=== PATIENT | female | born 1980 | race Caucasian/White ===

== ENCOUNTER → 2023-04-30 | Emergency (ER) | payer OTHER ==
[~2023-04-30] MED LIST: ASPIRIN 81 MG CHEWABLE TABLET ONE; AZITHROMYCIN 250 MG TAB ONE; FAMOTIDINE 20 MG/2 ML VIAL IV ONE
[2023-04-30 18:36] LABS: PT Prothrombin Time 10.9 SECONDS (9.5-12.5); Protime INR 0.99
--- NOTE | 2023-04-30 18:49 | RAD REPORT ---
EXAM DESCRIPTION: Kayode Single View04/30/2023 6:33 pm CLINICAL HISTORY: Chest pain COMPARISON: none FINDINGS: The lungs appear clear of acute infiltrate. The heart is normal size IMPRESSION: No acute abnormalities displayed
[2023-04-30 18:53] LABS: Absolute Eosinophils 0.2 K/uL (0-0.5); Absolute Lymphocytes (CBC) 2.5 K/uL (0.7-4.9); Absolute Monocytes 0.2 K/uL (0.1-1.3); Absolute Neutrophil 2.7 K/uL (1.8-8.0); Basophils % 0.8 % (0-1.3); Eosinophils % 3.5 % (0-4.4); Hematocrit 36.4 % (36.0-45.0); Hemoglobin 12.4 g/dL (12.0-15.0); Lymphocytes % 44.5 % (15.3-44.8); MCH 29.9 pg (27.0-35.0); MCHC 34.1 g/dL (32.0-36.0); MCV 87.6 fL (80-100); Monocytes % 3.1 % (3.3-12.3); Neutrophils % 48.1 % (41.7-73.7); Nucleated RBC Absolute Count 0.1 (0-0); RBC Red Blood Cell Count 4.16 M/uL (3.86-4.86); Red Cell Distribution Width 13.5 % (12.1-15.2)
[2023-04-30 19:15] LABS: MPV 7.7 fL (7.6-11.3); Platelets 142 thou/uL (152-406)
[2023-04-30 21:19] LABS: Specific Gravity 1.015 (1.005-1.030); Sqamous Epithelial <5 /HPF (None Seen); Urine Bacteria <20 /HPF (<20); Urine Bilirubin NEGATIVE (Negative); Urine Blood Negative (Negative); Urine Clarity Turbid (Clear); Urine Color Light-Yellow (Yellow); Urine Culture Reflex Order NOT NEEDED; Urine Glucose NEGATIVE (Negative); Urine Ketones NEGATIVE (Negative); Urine Micro Reflex YN NO BILL MICROSCOPIC; Urine Mucus 1+ /HPF (None Seen); Urine Nitrite NEGATIVE (Negative); Urine Protein NEGATIVE (Negative); Urine RBC <5 /HPF (None Seen); Urine Urobilinogen Normal (Normal); Urine WBC <5 /HPF (<5); Urine Yeast (Budding) Trace /HPF (None Seen); Urine pH 6.5 (5.0-7.0)
[2023-04-30 21:23] LABS: ALT/SGPT 16 U/L (13-56); AST/SGOT 12 U/L (15-37); Albumin 3.5 g/dL (3.4-5.0); Albumin/Globulin Ratio 1.1 (1.1-1.8); Alkaline Phosphatase 50 U/L (45-117); Anion Gap 8.8 mEq/L (5.0-15.0); BUN Blood Urea Nitrogen 6 mg/dL (7-18); Bicarbonate 26 mEq/L (21-32); Bilirubin Total 0.4 mg/dL (0.2-1.0); Globulin 3.3 g/dL (2.3-3.5); Glomerular Filtration Rate 112 ml/min (=/>90); Glucose Level 84 mg/dL (74-106); Magnesium 2.2 mg/dL (1.6-2.4); NT PRO-BNP 141 pg/mL (<125); Potassium 3.8 mEq/L (3.5-5.1); Protein, Total 6.8 g/dL (6.4-8.2); Sodium Level 141 mEq/L (136-145)
[2023-04-30 21:24] LABS: Barbiturates NEGATIVE (NEGATIVE); Benzodiazepines NEGATIVE (NEGATIVE); Cocaine NEGATIVE (NEGATIVE); METHAMPHETAM NEGATIVE (NEGATIVE); Methadone NEGATIVE (NEGATIVE); Opiates NEGATIVE (NEGATIVE); Phencyclidine NEGATIVE (NEGATIVE); THC Cannibis POSITIVE (NEGATIVE)
[2023-04-30 21:34] LABS: Bilirubin Direct < 0.1 mg/dL (0-0.2); Bilirubin Indirect, Calculated ND mg/dL (0.2-0.8); Troponin High Sensitivity < 3.0 pg/mL (<58.9)
--- NOTE | 2023-05-01 00:58 | ER ---
Nurse's Notes [facility] Name: Chelsey Piper Age: 43 yrs Sex: Female : 1980 Arrival Date: 04/30/2023 Time: 17:52 Bed 15 Private MD: Diagnosis: Chest pain, unspecified Presentation: 04/29 18:00 Chief complaint: Patient states: "I started having chest pain this morning. I've had it mb9 for years but today it didn't go away. I felt like I was going to pass out." Pt denies SOB/N/V. Coronavirus screen: At this time, the client does not indicate any symptoms associated with coronavirus-19. Ebola Screen: No symptoms or risks identified at this time. Initial Sepsis Screen: Does the patient meet any 2 criteria? No. Patient's initial sepsis screen is negative. Does the patient have a suspected source of infection? No. Patient's initial sepsis screen is negative. Risk Assessment: Do you want to hurt yourself or someone else? Patient reports no desire to harm self or others. Onset of symptoms was April 30, 2023. 18:00 Method Of Arrival: Ambulatory mb9 18:00 Acuity: SERGE 3 mb9 Triage Assessment: 18:01 Pain: Complains of pain in chest Pain does not radiate. Pain currently is 10 out of 10 mb9 on a pain scale. Quality of pain is described as sharp, stabbing. Cardiovascular: Reports chest pain, Patient's skin is warm and dry. Historical: - Allergies: 21:34 Aspirin; me1 21:34 Demerol; me1 - Home Meds: 18:01 None [Active]; mb9 - PMHx: 18:01 None; mb9 - PSHx: 18:01 None; mb9 - Immunization history:: Adult Immunizations up to date. - Social history:: Smoking status: Patient reports the use of cigarette tobacco products, smokes one pack cigarettes per day. Screenin:11 [facility] ED Fall Risk Assessment (Adult) History of falling in the last 3 months, me1 including since admission No falls in past 3 months (0 pts) Confusion or Disorientation No (0 pts) Intoxicated or Sedated No (0 pts) Impaired Gait No (0 pts) Mobility Assist Device Used No (0 pt) Altered Elimination No (0 pt) Score/Fall Risk Level 0 - 2 = Low Risk Maintained a safe environment, Provided non-skid footwear, Hourly rounding (assess needs \\T\\ fall precautionary measures) done. Abuse screen: Denies threats or abuse. Nutritional screening: No deficits noted. Tuberculosis screening: No symptoms or risk factors identified. Assessment: 22:11 General: Appears comfortable, well groomed, well developed, well nourished, Behavior is me1 calm, cooperative, appropriate for age, Reports "I started having chest pain this morning. I've had it for years but today it didn't go away. I felt like I was going to pass out." Pt denies SOB/N/V. Pain: Complains of pain in chest Pain does not radiate. Pain at worst was 10 out of 10 on a pain scale. Quality of pain is described as sharp, Pain began years ago. Is continuous. Pain: Pain currently is 7 out of 10 on a pain scale. Quality of pain is described as sharp, Pain began years ago. Is continuous. Neuro: Level of Consciousness is awake, alert, obeys commands, Oriented to person, place, time, situation, Appropriate for age. Cardiovascular: Patient's skin is warm and dry. Cardiovascular: Respiratory: Airway is patent Trachea midline Respiratory effort is even, unlabored, Respiratory pattern is regular, symmetrical. Derm: Skin is pink, warm \\T\\ dry. 23:00 Reassessment: Patient and/or family updated on plan of care and expected duration. Pain me1 level reassessed. Patient is alert, oriented x 3, equal unlabored respirations, skin warm/dry/pink. 04/30 00:00 Reassessment: Patient appears in no apparent distress at this time. No changes from km8 previously documented assessment. Patient and/or family updated on plan of care and expected duration. Pain level reassessed. Patient is alert, oriented x 3, equal unlabored respirations, skin warm/dry/pink. General: Appears in no apparent distress. comfortable. Neuro: Level of Consciousness is awake, alert, obeys commands, Oriented to person, place, time, situation. Cardiovascular: Patient's skin is warm and dry. Respiratory: Airway is patent Respiratory effort is even, unlabored, Respiratory pattern is regular, symmetrical. 01:00 Reassessment: Patient appears in no apparent distress at this time. No changes from km8 previously documented assessment. Patient and/or family updated on plan of care and expected duration. Pain level reassessed. Patient is alert, oriented x 3, equal unlabored respirations, skin warm/dry/pink. Vital Signs: 04/29 18:00 BP 114 / 93; Pulse 76; Resp 18; Temp 98; Pulse Ox 100% on R/A; Weight 54.43 kg; Height mb9 5 ft. 2 in. ; Pain 10/10; 21:26 BP 98 / 68; Pulse 54; Resp 16; Pulse Ox 100% on R/A; me1 22:00 BP 102 / 54; Pulse 53; Resp 16; Pulse Ox 100% on R/A; me1 04/30 01:10 BP 105 / 60; Pulse 55; Resp 18; Temp 98.2(TE); Pulse Ox 98% on R/A; km8 04/29 18:00 Body Mass Index 21.95 (54.43 kg, 157.48 cm) mb9 04/29 18:00 Pain Scale: Adult mb9 ED Course: 04/29 17:55 Patient arrived in ED. mg5 17:59 Royer Brink PA is PHCP. cp 17:59 Royer Serrato MD is Attending Physician. cp 18:00 EKG done, by ED staff, reviewed by Royer JESUS. mb9 18:01 Triage completed. mb9 18:01 Arm band placed on. mb9 18:18 Basic Metabolic Panel Sent. mb9 18:18 CBC with Diff Sent. mb9 18:18 D-Dimer Sent. mb9 18:18 LFT's Sent. mb9 18:18 Magnesium Sent. mb9 18:18 NT PRO-BNP Sent. mb9 18:18 PT-INR Sent. mb9 18:18 Troponin HS Sent. mb9 18:18 Inserted saline lock: 20 gauge in left forearm, using aseptic technique. mb9 18:18 Initial lab(s) drawn, by me, sent to lab. mb9 18:35 XRAY Chest (1 view) In Process Unspecified. EDMS 21:16 Radha Ramon, RN is Primary Nurse. me1 22:11 Patient has correct armband on for positive identification. Provided Education on: POC. me1 Verbalized understanding. . Client placed on continuous cardiac and pulse oximetry monitoring. NIBP monitoring applied. shelter monitor on. Pulse ox on. NIBP on. 22:11 No provider procedures requiring assistance completed. Patient maintains SpO2 me1 saturation greater than 95% on room air. 22:31 CT Chest For PE Angio In Process Unspecified. EDMS 22:44 Troponin High Sensitivity Sent. me1 04/30 00:56 Mansoor Krishnamurthy MD is Referral Physician. cp 01:11 IV discontinued, intact, bleeding controlled, No redness/swelling at site. Pressure km8 dressing applied. Administered Medications: 04/29 21:36 Not Given (Patient Refused; allergic to aspirin. Added to allergies.): aspirinchewable me1 tablet 324 mg PO once; 81 mg tablets x 4 21:36 Drug: Famotidine IVP 20 mg IVP once; dilute with 10 mL 0.9% NaCl; give over 2 minutes me1 Route: IVP; Site: left forearm; 22:17 Follow up: Response: No adverse reaction me1 04/30 01:09 Drug: AZITHromycin PO 500 mg PO once Route: PO; km8 01:09 Follow up: Response: Medication administered at discharge. km8 Medication: 04/29 22:11 VIS not applicable for this client. me1 Outcome: 04/30 00:57 Discharge ordered by MD. cp 01:11 Discharged to home ambulatory, with significant other, km8 01:11 Condition: good 01:11 Discharge instructions given to patient, significant other, Instructed on discharge instructions, follow up and referral plans. medication usage, Demonstrated understanding of instructions, follow-up care, medications, Prescriptions given X 2, 01:12 Patient left the ED. km8 Signatures: Dispatcher [employer] EDOH Royer Brink PA PA cp Breneman, Mary Beth RN RN mb9 Rdaha Ramon, RN RN me1 Gena Guerrero mg5 Naheed Pedroza RN RN km8 Corrections: (The following items were deleted from the chart) 04/29 21:35 18:01 Allergies: No Known Allergies; mb9 il1 22:11 18:00 Chief complaint: Patient states: "I started having chest pain this morning. I've me1 had it for years but today it didn't go away. I felt like I was going to pass out." Pt denies SOB/N/V margie
--- NOTE | 2023-05-01 00:58 | EDPHYS ---
Physician Documentation [facility] Name: Chelsey Piper Age: 43 yrs Sex: Female : 1980 Arrival Date: 04/30/2023 Time: 17:52 Bed 15 Private MD: ED Physician Royer Serrato HPI: 04/29 18:05 This 43 yrs old Female presents to ER via Ambulatory with complaints of Chest Pain. cp 18:05 The patient or guardian reports chest pain that is located primarily in the substernal cp area. Onset: this morning. The pain does not radiate. The chest pain is described as sharp. Duration: The patient or guardian reports a single episode, that is still ongoing, and unchanged. 18:05 Associated signs and symptoms: Pertinent positives: near-syncope, Pertinent negatives: cp abdominal pain, cough, diaphoresis, dizziness, headache, lower extremity pain, lower extremity swelling, palpitations, shortness of breath, vomiting. Historical: - Allergies: 21:34 Aspirin; me1 21:34 Demerol; me1 - Home Meds: 18:01 None [Active]; mb9 - PMHx: 18:01 None; mb9 - PSHx: 18:01 None; mb9 - Immunization history:: Adult Immunizations up to date. - Social history:: Smoking status: Patient reports the use of cigarette tobacco products, smokes one pack cigarettes per day. ROS: 18:10 Constitutional: Negative for body aches, chills, fever, poor PO intake, cp 18:10 Cardiovascular: Positive for chest pain, Negative for edema, palpitations, cp 18:10 Respiratory: Negative for cough, shortness of breath, wheezing, 18:10 Abdomen/GI: Negative for abdominal pain, vomiting, diarrhea, constipation, 18:10 Eyes: Negative for injury, pain, redness, and discharge, cp 18:10 ENT: Negative for drainage from ear(s), ear pain, sore throat, difficulty swallowing, difficulty handling secretions, 18:10 Back: Negative for pain at rest, pain with movement, 18:10 Neuro: Negative for altered mental status, dizziness, headache, numbness, syncope, weakness, 18:10 All other systems are negative, Exam: 18:02 ECG was reviewed by the Attending Physician. cp 18:15 Constitutional: The patient appears in no acute distress, alert, awake, cp non-diaphoretic, non-toxic, well developed, well nourished, 18:15 Head/Face: Normocephalic, atraumatic. cp 18:15 Eyes: Periorbital structures: appear normal, Conjunctiva: normal, no exudate, no injection, Sclera: no appreciated abnormality, Lids and lashes: appear normal, bilaterally, 18:15 ENT: External ear(s): are unremarkable, Nose: is normal, Mouth: Lips: normal, Oral mucosa: pink and intact, moist, Posterior pharynx: Airway: no evidence of obstruction, patent, Voice: is normal, 18:15 Neck: ROM/movement: is normal, is supple, without pain, no range of motions limitations, no nuchal rigidity, 18:15 Chest/axilla: Inspection: normal, 18:15 Cardiovascular: Rate: normal, Rhythm: regular, Edema: is not appreciated, JVD: is not appreciated, 18:15 Respiratory: the patient does not display signs of respiratory distress, Respirations: normal, no use of accessory muscles, no retractions, labored breathing, is not present, Breath sounds: are clear throughout, no decreased breath sounds, no stridor, no wheezing, 18:15 Abdomen/GI: Exam negative for discomfort, distension, guarding, Inspection: abdomen appears normal, 18:15 Back: pain, is absent, ROM is normal, 18:15 Neuro: Orientation: to person, place \T\ time. Mentation: is normal, Cerebellar function: is grossly normal, Motor: moves all fours, strength is normal, Sensation: is normal, 22:36 ECG was reviewed by the Attending Physician. cp Vital Signs: 18:00 BP 114 / 93; Pulse 76; Resp 18; Temp 98; Pulse Ox 100% on R/A; Weight 54.43 kg; Height mb9 5 ft. 2 in. ; Pain 10/10; 21:26 BP 98 / 68; Pulse 54; Resp 16; Pulse Ox 100% on R/A; me1 22:00 BP 102 / 54; Pulse 53; Resp 16; Pulse Ox 100% on R/A; me1 04/30 01:10 BP 105 / 60; Pulse 55; Resp 18; Temp 98.2(TE); Pulse Ox 98% on R/A; km8 04/29 18:00 Body Mass Index 21.95 (54.43 kg, 157.48 cm) mb9 04/29 18:00 Pain Scale: Adult mb9 MDM: 04/29 18:00 Patient medically screened. cp 04/30 00:00 The patient was not given aspirin in the Emergency Department. Not indicated due to cp patient's past medical history. 00:55 Data reviewed: vital signs, nurses notes, lab test result(s), EKG, radiologic studies, cp CT scan, plain films. 00:55 Differential diagnosis: abnormal EKG, acute myocardial infarction, chest wall pain, cp cholecystitis, Cholelithiasis costochondritis, esophagitis, pericarditis, pleurisy, pneumonia, pneumothorax, pulmonary embolus, stable angina, thoracic aortic disection, unstable angina. Consideration of Admission/Observation Escalation of care including admission/observation considered. I considered the following discharge prescriptions or medication management in the emergency department Medications were administered in the Emergency Department. See MAR. 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 Response to treatment: the patient's symptoms have markedly improved after treatment, and as a result, I will discharge patient. Special discussion: Based on the patient's history, exam, and Dx evaluation, there is no indication for emergent intervention or inpatient Tx. It is understood by the patient/guardian that if the Sx's persist or worsen they need to return immediately for re-evaluation. 04/29 18:05 Order name: Basic Metabolic Panel; Complete Time: 22:05 cp 04/29 22:05 Interpretation: Normal except: CL 110; BUN 6. cp 04/29 18:05 Order name: CBC with Diff; Complete Time: 22:05 cp 04/29 18:05 Order name: D-Dimer; Complete Time: 22:05 cp 04/29 18:05 Order name: LFT's; Complete Time: 22:05 cp 04/29 18:05 Order name: Magnesium; Complete Time: 22:05 cp 04/29 18:05 Order name: NT PRO-BNP; Complete Time: 22:05 cp 04/29 18:05 Order name: PT-INR; Complete Time: 22:05 cp 04/29 18:05 Order name: Troponin HS; Complete Time: 22:05 cp 04/29 18:07 Order name: Urinalysis W/Microscopic; Complete Time: 22:05 cp 04/29 18:07 Order name: UDS; Complete Time: 22:05 cp 04/29 18:07 Order name: Test, Urine; Complete Time: 22:05 cp 04/29 22:06 Order name: Troponin High Sensitivity; Complete Time: 23:32 cp 04/29 18:05 Order name: XRAY Chest (1 view); Complete Time: 22:05 cp 04/29 22:06 Order name: CT Chest For PE Angio cp 04/29 18:05 Order name: EKG; Complete Time: 18:06 cp 04/29 18:05 Order name: Cardiac monitoring; Complete Time: 21:24 cp 04/29 18:05 Order name: EKG - Nurse/Tech; Complete Time: 18:07 cp 04/29 18:05 Order name: IV Saline Lock; Complete Time: 18:08 cp 04/29 18:05 Order name: Labs collected and sent; Complete Time: 18:08 cp 04/29 18:05 Order name: O2 Per Protocol; Complete Time: 21:24 cp 04/29 18:05 Order name: O2 Sat Monitoring; Complete Time: 21:24 cp 04/29 18:37 Order name: Labs - recollect needed: green top; Complete Time: 20:40 ds4 04/29 22:06 Order name: EKG - Nurse/Tech; Complete Time: 22:44 cp EC/21 18:02 Rate is 69 beats/min. Rhythm is regular. OR interval is normal. QRS interval is normal. cp QT interval is normal. T waves are Inverted in leads III, aVF. Interpreted by me. Reviewed by me. 22:36 Rate is 53 beats/min. Rhythm is regular. OR interval is shortened at 106 msec. QRS cp interval is normal. QT interval is normal. T waves are Inverted in lead aVR. Interpreted by me. Reviewed by me. Administered Medications: 21:36 Not Given (Patient Refused; allergic to aspirin. Added to allergies.): aspirinchewable me1 tablet 324 mg PO once; 81 mg tablets x 4 21:36 Drug: Famotidine IVP 20 mg IVP once; dilute with 10 mL 0.9% NaCl; give over 2 minutes me1 Route: IVP; Site: left forearm; 22:17 Follow up: Response: No adverse reaction me1 04/30 01:09 Drug: AZITHromycin PO 500 mg PO once Route: PO; km8 01:09 Follow up: Response: Medication administered at discharge. km8 Disposition Summary: 05/01/23 00:57 Discharge Ordered Notes: Location: Home cp Problem: new cp Symptoms: have improved cp Condition: Stable cp Diagnosis - Chest pain, unspecified cp Followup: cp - With: Mansoor Krishnamurthy MD - When: 5 - 6 days - Reason: Recheck today's complaints Discharge Instructions: - Discharge Summary Sheet cp - Nonspecific Chest Pain, Adult cp Forms: - Medication Reconciliation Form cp - Thank You Letter cp - Antibiotic Education cp - Prescription Opioid Use cp - Patient Portal Instructions cp - Leadership Thank You Letter cp Prescriptions: - Pepcid 20 mg Oral Tablet - take 1 tablet ORAL route every 12 hours for 10 days; 20 tablet; Refills: 0, cp Product Selection Permitted - Zithromax Z-Bennett 250 mg Oral Tablet - take 1 tablet ORAL route as directed for 5 days Day 1 - take two (2) tablets cp one time. Day 2, 3, 4 , 5 take one (1) tablet once daily.; 6 tablet; Refills: 0, Product Selection Permitted Signatures: Dispatcher [employer] Andrew Juan ds4 Royer Brink PA PA cp Breneman, Mary Beth RN RN mb9 Radha Ramon RN RN ky1 Naheed Pedroza RN RN km8 Corrections: (The following items were deleted from the chart) 04/29 21:35 18:01 Allergies: No Known Allergies; margie me1
[2023-05-01 01:25] VITALS: BP 105/60; TEMP 98.2; O2SAT 98
--- NOTE | 2023-05-01 10:11 | RAD REPORT ---
EXAM DESCRIPTION: CT - Chest For Pe Angio - 05/01/2023 6:31 am CLINICAL HISTORY: CHEST PAIN COMPARISON: None. TECHNIQUE: CT CHEST ANGIOGRAPHY WITH IV CONTRAST on 04/30/2023 10:06 PM CDT. MIPS reconstructions wer e generated. This exam was performed according to our departmental dose-optimization program, which includes autom ated exposure control, adjustment of the mA and/or kV according to patient size and/or use of iterati ve reconstruction technique. MIP images were generated. FINDINGS: Thoracic aorta is normal in course and caliber without aneurysm or dissection. Pulmonary a rteries are adequately opacified without acute or chronic filling defects. The heart is normal in size. There is no pericardial effusion. Intrathoracic lymph nodes are not enla rged. There is no pleural effusion, pleural thickening or pneumothorax. Central airways are patent. There i s mild upper lung centrilobular and paraseptal emphysema. There are minimal groundglass opacities in the upper lobes. There is a groundglass nodule in the right upper lobe measuring 3 mm. There are no acute abnormalities within the limited images of the upper abdomen. There are no acute osseous findings. No suspicious bony lesions. IMPRESSION: No aortic dissection or aneurysm. No pulmonary embolus. Difficult to exclude mild bilateral upper lobe. 3 mm right ground-glass pulmonary nodule within the upper lobe. Per Fleischner Society Guidelines, no routine follow-up imaging is recommended. These guidelines do not apply to immunocompromised patients and patients with cancer. Follow up in pa tients with significant comorbidities as clinically warranted. For lung cancer screening, adhere to L latanya-RADS guidelines. Reference: Radiology. 2017; 284(1):228-43. Electronically signed by: Gene Reynoso MD 05/01/2023 12:36 AM CDT Due to temporary technical issues with the PACS/Fluency reporting system, reports are being signed by the in house radiologist without review as a courtesy to ensure prompt reporting. The interpreting r adiologist is fully responsible for the content of the report.
--- NOTE | 2023-05-04 14:29 | EKG ---
Test Date: 2023-04-30 Test Time: 22:30:02 International Accountant: MEASUREMENT RESULTS: Intervals: Rate: 53 CA: 106 QRSD: 82 QT: 448 QTc: 420 Preston: P: 18 CA: 106 QRS: 82 T: 36 INTERPRETIVE STATEMENTS: Sinus bradycardia with short CA Otherwise normal ECG No previous ECG available for comparison Electronically Signed On 05-04-23 14:17:24 CDT by Mansoor Krishnamurthy
== END ==
LOC: ER 17:52
DX: R07.9 Chest pain, unspecified (principal); F17.210 Nicotine dependence, cigarettes, uncomplicated; Z88.5 Allergy status to narcotic agent; Z88.6 Allergy status to analgesic agent
CPT/HCPCS: 93005; 85025; 81001; 80048; 36415; 83735; 81025; 85610; 85379; 80076; 84484 ×2; 83880; 80307; 71275; 71045; 96374; 99285; Q9967

== ENCOUNTER 2024-05-13 23:15 | Emergency (ER) | payer OTHER ==
--- OUTSIDE RECORDS SUMMARY | 2024-05-13 23:18 | XMS REPORT | Continuity of Care Document ---
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 [employer] 94 9 [id number] 2024 00:00:00 Problems Condition Name Condition Details Condition Category Status Onset Date Resolution Date Last Treatment Date Treating Clinician Comments Source Swelling of extremity Swelling of extremity Disease Active 18 00:00: 00 Janette Zapien - Externa raeann Severe episode of recurrent major depressive disorder, without psychotic features (multi HCC) Severe episode of recurrent major depressive disorder, without psychotic features (multi HCC) Disease Active 2023-02 00:00: 00 Janette Zapien - Externa l Insomnia Insomnia Disease Active 2023-02 00:00: 00 Janette Weberold - Externa l Allergies, Adverse Reactions, Alerts Allergy Name Allergy Type Status Severity Reaction(s) Onset Date Inactive Date Treating Clinician Comments Source Demerol Propensi ty to adverse reaction s Active Other 2023-02 1- 00:00: 00 Oversedat ed, didn't wake up after 2 days. Janette Zapien - Externa l Social History Social Habit Start Date Stop Date Quantity Comments Source ASSERTION Not Janette Zapien - External Sexual orientation Olivia lock Curry - External Cigarettes smoked current (pack per day) - Reported 2024-04-26 00:00:00 2024-04-26 00:00:00 Janette Zapien - External Cigarette pack-years 2024-04-26 00:00:00 2024-04-26 00:00:00 Janette Zapien - External Alcoholic beverage intake 2024-04-26 00:00:00 2024-04-26 00:00:00 Lifetime non-drinker (finding) Janette Zapien - External History of tobacco use 1993-04-11 00:00:00 2023-12-23 00:00:00 Cigarette Smoker Janette Zapien - External History of Social function 2023-12-17 00:00:00 2023-12-17 00:00:00 Janette Zapien - External Sex 2023-11-12 16:31:07 2023-11-12 16:31:07 Female (finding) Janette Zapien - External Sex assigned at 1980 00:00:00 1980 00:00:00 Janette Zapien - External Smoking Status Start Date Stop Date Source Ex-smoker 2024-04-26 00:00:00 2024-04-26 00:00:00 Olivia lock Curry - External Smokes tobacco daily 2023-12-18 00:00:00 Janette Zapien - External Medications Ordered Medication Name Filled Medication Name Start Date Stop Date Current Medication? Ordering Clinician Indication Dosage Frequency Signature (SIG) Comments Components Source Albuterol HFA 108 (90 Base) MCG/ACT IN AERS 04-26 16:08: 47 Yes 2{puff} Q.25D Inhale 2 puffs into the lungs every 6 hours as needed for wheezing. Janette cary Bupropion HCL XL 150 MG OR TB24 04-26 00:00: 00 Yes [id number] 150mg QD Take 1 tablet (150 mg total) by mouth daily. Janette Moreno l Sertraline HCl 50 MG oral Tablet 04-18 00:00: 00 Yes [id number] 50mg QD Take 1 tablet (50 mg total) by mouth daily. Janette cary Vitamin D, Ergocalcife rol, 1.25 MG (17315 UT) oral Capsule 03-23 00:00: 00 04-26 00:00 :00 No [id number] Q1W Take 1 capsule (50,000 units total) by mouth once a week. Janette cary Albuterol HFA 108 (90 Base) MCG/ACT IN AERS 03-17 09:49: 34 Yes 2{puff} Q.25D Inhale 2 puffs into the lungs every 6 hours as needed for wheezing. Janette cary Cholecalcif radha (Vitamin D) 50 MCG (2000 UT) oral Capsule 03-17 00:00: 00 Yes [id number] 2000U QD Take 1 capsule (2,000 units total) by mouth daily. Janette cary Sertraline HCl 50 MG oral Tablet 03-17 00:00: 00 Yes [id number] 50mg QD Take 1 tablet (50 mg total) by mouth daily. Janette cary buPROPion HCl 75 MG oral Tablet 03-17 00:00: 00 04-26 00:00 :00 No [id number] 75mg QD Take 1 tablet (75 mg total) by mouth daily. Janette cary Mirtazapine 15 MG oral Tablet - 00:00: 00 Yes [id number] 15mg QD TAKE 1 TABLET BY MOUTH EVERY DAY AT NIGHT Janette cary Propranolol HCl 10 MG oral Tablet 2- 00:00: 00 Yes [id number] 10mg Q.[id number] 3D TAKE 1 TABLET BY MOUTH THREE TIMES A DAY NEEDED Janette cary Sertraline HCl 25 MG oral Tablet 1- 00:00: 00 03-17 00:00 :00 No [id number] 50mg QD TAKE 2 TABLETS BY MOUTH EVERY DAY Janette cary Sertraline HCl 25 MG oral Tablet 2023-02 2- 00:00: 00 Yes [id number] 50mg QD Take 2 tablets (50 mg total) by mouth daily. Janette cary Propranolol HCl 10 MG oral Tablet 2023-02 00:00: 00 Yes [id number] 10mg Q.[id number] 3D TAKE 1 TABLET BY MOUTH 3 TIMES DAILY NEEDED Janette cary Trazodone HCl 50 MG oral Tablet 2023-02 00:00: 00 Yes [id number] 50mg QD TAKE 1 TABLET BY MOUTH EVERY DAY AT NIGHT Janette cary Cholecalcif radha (Vitamin D) 50 MCG (2000 UT) oral Capsule 2023-02 00:00: 00 03-17 00:00 :00 No [id number] 2000U QD Take 1 capsule (2,000 units total) by mouth daily. Janette cary Albuterol HFA 108 (90 Base) MCG/ACT IN AERS 2023-02 12:52: 05 Yes 2{puff} Q.25D Inhale 2 puffs into the lungs every 6 hours as needed for wheezing. Janette cary Trazodone HCl 50 MG oral Tablet 2023-02 00:00: 00 Yes [id number] 50mg QD Take 1 tablet (50 mg total) by mouth nightly. Janette cary Propranolol HCl 10 MG oral Tablet 2023-02 00:00: 00 Yes [id number] 10mg Q.[id number] 3D Take 1 tablet (10 mg total) by mouth 3 times daily as needed. Janette cary Sertraline HCl 25 MG oral Tablet 2023-02 00:00: 00 01-12 00:00 :00 No [id number] 25mg QD Take 1 tablet (25 mg total) by mouth daily. Janette cary Vital Signs Vital Name Observation Time Observation Value Comments Young mulligan Systolic blood pressure 2024-04-26 21:04:00 96 mm[Hg] Janette flores - External Diastolic blood pressure 2024-04-26 21:04:00 70 mm[Hg] Janette Seybo ld - External Heart rate 2024-04-26 21:04:00 83 /min Douglasse y Seybold - External Body temperature 2024-04-26 21:04:00 36 Jen Janette Seybold - External Respiratory rate 2024-04-26 21:04:00 15 /min Janette Seybold - External Body height 2024-04-26 21:04:00 157.5 cm Naida ey Seybold - External Body weight 2024-04-26 21:04:00 72.122 kg Naida ey Seybold - External BMI 2024-04-26 21:04:00 29.08 kg/m2 Naida ey Seybold - External Oxygen saturation in Arterial blood by Pulse oximetry 2024-04-26 21:04:00 98 /min Janette Seybo ld - External Systolic blood pressure 2024-03-25 14:46:00 108 mm[Hg] Janette Seybo ld - External Diastolic blood pressure 2024-03-25 14:46:00 72 mm[Hg] Janette Seybo ld - External Heart rate 2024-03-25 14:46:00 83 /min Riaz y Seybold - External Respiratory rate 2024-03-25 14:46:00 18 /min Janette Seybold - External Body height 2024-03-25 14:46:00 157.5 cm Naida ey Seybold - External Body weight 2024-03-25 14:46:00 65.318 kg Naida ey Seybold - External BMI 2024-03-25 14:46:00 26.34 kg/m2 Naida ey Seybold - External Respiratory rate 2024-03-17 15:48:00 16 /min Janette Seybold - External Body height 2024-03-17 15:48:00 157.5 cm Naida ey Seybold - External Body weight 2024-03-17 15:48:00 66.225 kg Naida ey Seybold - External BMI 2024-03-17 15:48:00 26.70 kg/m2 Naida ey Seybold - External Oxygen saturation in Arterial blood by Pulse oximetry 2024-03-17 15:48:00 97 /min Janette Seybo ld - External Systolic blood pressure 2024-03-17 15:48:00 115 mm[Hg] Janette Webero ld - External Diastolic blood pressure 2024-03-17 15:48:00 62 mm[Hg] Janette Cabanybo ld - External Heart rate 2024-03-17 15:48:00 81 /min Douglasse y Seybold - External Body temperature 2024-03-17 15:48:00 36.61 Jen Janette Seybold - External Systolic blood pressure 2023-12-18 18:45:00 96 mm[Hg] Janette Seybo ld - External Diastolic blood pressure 2023-12-18 18:45:00 68 mm[Hg] Janette Cabanybo ld - External Heart rate 2023-12-18 18:45:00 97 /min Douglasse y Seybold - External Body temperature 2023-12-18 18:45:00 36.06 Jen Janette Seybold - External Respiratory rate 2023-12-18 18:45:00 14 /min Janette Seybold - External Body height 2023-12-18 18:45:00 157.5 cm Naida ey Seybold - External Body weight 2023-12-18 18:45:00 55.157 kg Naida ey Seybold - External BMI 2023-12-18 18:45:00 22.24 kg/m2 Naida ey Seybold - External Encounters Start Date/Time End Date/Time Encounter Type Admission Type Attending [facility] Care Department Encounter ID Source 2024-06-08 10:20:00 2024-06-08 10:20:00 Outpatient GEO OLIVEIRA [id number] Janette shaka 2024-04-28 08:00:00 2024-04-28 08:00:00 Outpatient DANIEL MCKNIGHT [id number] Janette shaka 2024-04-28 00:00:00 2024-04-28 00:00:00 Outpatient DANIEL MCKNIGHT [id number] Janette Zapien 2024-04-26 17:00:00 2024-04-26 17:00:00 Outpatient LAB90 JANETTE ARROYO [id number] Janette shaka 2024-04-26 16:30:00 2024-04-26 16:30:00 Outpatient DANIEL MCKNIGHT [id number] Janette Cabanyblenin 2024-04-17 00:00:00 2024-04-17 00:00:00 Outpatient JORGE ARaeann DANIEL JANETTE ARROYO [id number] Janette Seyblenin 2024-04-15 11:00:00 2024-04-15 11:00:00 Outpatient JANETTE ARROYO [id number] Janette Seybold 2024-04-15 10:00:00 2024-04-15 10:00:00 Outpatient JANETTE JANETTE [id number] Janette Seybold 2024-04-15 09:30:00 2024-04-15 09:30:00 Outpatient JANETTE JANETTE [id number] Janette Seybold 2024-04-15 08:30:00 2024-04-15 08:30:00 Outpatient [facility] ARROY[facility] [id number] [facility] 2024-04-15 00:00:00 2024-04-15 00:00:00 Outpatient GLENN KRISHNA [id number] Janette Seybold 2024-03-25 10:20:00 2024-03-25 10:20:00 Outpatient JANETTE ARROYO [id number] Janette Cabanyblenin 2024-03-25 09:30:00 2024-03-25 09:30:00 Outpatient LAB47 JANETTE ARROYO [id number] [facility] 2024-03-25 08:45:00 2024-03-25 08:45:00 Outpatient NASRA ESCOBAR [id number] Janette ybold 2024-03-23 00:00:00 2024-03-23 00:00:00 Outpatient DANIEL MCKNIGHT [id number] Janette Seybold 2024-03-21 00:00:00 2024-03-21 00:00:00 Outpatient DANIEL MCKNIGHT [id number] Janette Seybold 2024-03-19 00:00:00 2024-03-19 00:00:00 Outpatient DANIEL MCKNIGHT [id number] Janette Seybold 2024-03-17 10:45:00 2024-03-17 10:45:00 Outpatient LAB90 JANETTE ARROYO [id number] Janette Cabanyblenin 2024-03-17 10:00:00 2024-03-17 10:00:00 Outpatient DANIEL MCKNIGHT JANETTE ARROYO [id number] Janette Cabanyblenin 2024-03-15 00:00:00 2024-03-15 00:00:00 Outpatient HUNDL, DANIEL ARROYO [id number] Janette yblenin 2024-02-12 13:15:00 2024-02-12 13:15:00 Outpatient JANETTE ARROYO [id number] Janette Seyblenin 2024-02-12 00:00:00 2024-02-12 00:00:00 Outpatient HUNDL, DANIEL JANETTE ARROYO [id number] [facility] 2024-01-22 14:20:00 2024-01-22 14:20:00 Outpatient GLENN KRISHNA JANETTE ARROYO [id number] [facility] 2024-01-15 00:00:00 2024-01-15 00:00:00 Outpatient HUNDL, DANIEL JANETTE ARROYO [id number] [facility] 2024-01-13 09:00:00 2024-01-13 09:00:00 Outpatient HUNDL, DANIEL JANETTE ARROYO [id number] [facility] 2024-01-09 00:00:00 2024-01-09 00:00:00 Outpatient HUNDL, DANIEL ARROYO [id number] Janette yblenin 2023-12-30 09:30:00 2023-12-30 09:30:00 Outpatient HUNDL, DANIEL ARROYO [id number] [facility] 2023-12-22 00:00:00 2023-12-22 00:00:00 Outpatient HUNDL, DANIEL ARROYO [id number] Janette Seybold 2023-12-18 13:45:00 2023-12-18 13:45:00 Outpatient LAB90 JANETTE ARROYO [id number] Janette Seybold 2023-12-18 13:00:00 2023-12-18 13:00:00 Outpatient HUNDL, DANIEL ARROYO [id number] Janette Seybold 2023-12-18 00:00:00 2023-12-18 00:00:00 Outpatient DANIEL MCKNIGHT JANETTE ARROYO [id number] Janette Zapien Notes Date/Time Note Provider Source 2024-04-26 16:08:51 Chief Complaint Patient presents with Physical Patient is fasting. Edema Swelling bilateral ankles. She has been working long hours on her feet. [facility] 2024-03-25 08:33:08 Chief Complaint Patient presents with Well Woman Exam Chelsey Russell is here today for her Well Woman Exam. Patient's last menstrual period was 03/07/2024 (approximate). The patient's last pap smear was pending and her last mammogram was 12/18/2023. Francie Beard MA [facility] Francie Beard MA [facility] 2023-12-18 12:51:57 Chief Complaint Patient presents with Establish Care Previous PCP was in [place]. Last annual has been over a year. Depression She has been on depression medication in the past. Around the age of 20. She was taken off of medication around 2004. She lost her son last year and has had decreased depression since. Chest Pain Chest pains that started in April. She went to the ER and was referred to Cardiology but was unable to schedule due to no insurance. She would like referral to Cardiology. Kaylynn Mayo MA [facility]
--- NOTE | 2024-05-13 23:36 | EDPHYS ---
Physician Documentation [facility] Name: Chelsey Piper Age: 44 yrs Sex: Female : 1980 Arrival Date: 05/13/2024 Time: 23:15 Bed Waiting Private MD: ED Physician MDM: 05/13 23:35 Medical Screening Exam initiated cp Administered Medications: No medications were administered Disposition Summary: 05/13/24 23:35 Eloped Notes: Disposition: Before Triage cp Problem: new cp Symptoms: have improved cp Reason: other cp Condition: Stable cp Followup: cp - With: Private Physician - When: As needed - Reason: Worsening of condition Signatures: Royer Brink PA PA cp
--- NOTE | 2024-05-13 23:40 | ER ---
Nurse's Notes [facility] Name: Chelsey Piper Age: 44 yrs Sex: Female : 1980 Arrival Date: 05/13/2024 Time: 23:15 Bed Waiting Private MD: Diagnosis: ED Course: 05/13 23:18 Patient arrived in ED. jj6 23:19 Royer Brink PA is PHCP. cp 23:19 John Morse DO is Attending Physician. cp Administered Medications: No medications were administered Outcome: 23:40 Patient left the ED. br2 Signatures: Royer Brink PA PA cp Jeffries, Jennifer jj6 Cris Mcdonald RN RN br2
== END 2024-05-13 23:40 | disposition left against medical advice (07) ==
LOC: ER 23:15
DX: Z02.9 Encounter for administrative examinations, unspecified (principal)